=== PATIENT | male | born 1950 | race Caucasian/White ===

== ENCOUNTER 2018-07-30 11:36 | Outpatient (CLI) | payer MEDICARE, BC, SELFPAY ==
[2018-07-30 12:13] LABS: HCT 43.8 % (40.0-50.0); HGB 14.9 g/dL (13.5-17.5); Mean Corpuscular Hemoglobin 32.5 pg (27.0-33.0); Mean Corpuscular Volume 95.4 fL (80-95); Mean Platelet Volume 9.3 fL (8.0-11.0); Platelet Count 290 x1000/uL (130-400); RBC 4.59 m/cumm (4.50-6.00); RBC Distribution Width 13.9 % (11.8-14.1); White Blood Cell Count 6.91 k/cumm (4.4-10.8)
[2018-07-30 13:19] LABS: ALT 33 U/L (12-78); AST 19 U/L (15-37); Albumin 3.7 g/dL (3.4-5.0); Alkaline Phosphatase 101 U/L (46-116); Anion Gap 10.6 mmol/L (3-11); BUN 18 mg/dL (7-18); Bilirubin, Total 0.4 mg/dL (0.2-1.0); CO2 27.4 mmol/L (21.0-32.0); CREATININE 1.28 mg/dL (0.70-1.30); Chloride 105 mmol/L (98-107); Cholesterol 160 mg/dL (50-200); Estimated GFR 55.72 (mL/min/1.73m2); Glucose 112 mg/dL (70-100); HDL Cholesterol 46 mg/dL (40-60); LDL CHOLESTEROL 93 mg/dL (<100); Sodium 143 mmol/L (136-145); Triglyceride 134 mg/dL (30-150)
== END 2018-07-30 11:56 ==
PROVIDERS: PCP Nurse Practitioner; Visit Provider Nurse Practitioner
DX: E78.5 Hyperlipidemia, unspecified (principal); I10 Essential (primary) hypertension
CPT/HCPCS: 80053; 80061; 83721; 85027

== ENCOUNTER 2019-08-03 12:12 | Outpatient (CLI) | payer MEDICARE, BC, SELFPAY ==
[2019-08-03 14:35] LABS: ALT 38 U/L (16-63); AST 21 U/L (15-37); Albumin 4.1 g/dL (3.4-5.0); Alkaline Phosphatase 96 U/L (46-116); BUN 15 mg/dL (7-18); Bilirubin, Total 0.6 mg/dL (0.2-1.0); CREATININE 1.07 mg/dL (0.70-1.30); Calculated LDL 77 mg/dL (<100); Chloride 104 mmol/L (98-107); Cholesterol 136 mg/dL (<200); Glucose 100 mg/dL (74-106); HDL Cholesterol 53 mg/dL (40-60); Potassium 3.9 mmol/L (3.5-5.1); Sodium 140 mmol/L (136-145); Total Protein 7.2 g/dL (6.4-8.2); Triglyceride 32 mg/dL (<150)
== END 2019-08-03 12:32 ==
PROVIDERS: PCP Nurse Practitioner; Visit Provider Nurse Practitioner
DX: I10 Essential (primary) hypertension (principal); E78.5 Hyperlipidemia, unspecified
CPT/HCPCS: 36415; 80053; 80061

== ENCOUNTER 2020-08-23 02:21 | Outpatient (CLI) | payer MEDICARE, OTHER, SELFPAY ==
[2020-08-23 08:32] LABS: ALT 31 U/L (16-63); AST 19 U/L (15-37); Alkaline Phosphatase 87 U/L (46-116); Anion Gap 9.7 mmol/L (3-11); BUN 18 mg/dL (7-18); Bilirubin, Total 0.7 mg/dL (0.2-1.0); CO2 27.3 mmol/L (21.0-32.0); Calcium 8.6 mg/dL (8.5-10.1); Calculated LDL 106 mg/dL (<100); Chloride 108 mmol/L (98-107); Cholesterol 168 mg/dL (<200); Glucose 102 mg/dL (74-106); HDL Cholesterol 46 mg/dL (40-60); Sodium 145 mmol/L (136-145); Triglyceride 80 mg/dL (<150)
== END 2020-08-23 02:22 | disposition home or self-care (01) ==
LOC: LBO 02:21
PROVIDERS: PCP Nurse Practitioner; Visit Provider Nurse Practitioner
DX: E78.5 Hyperlipidemia, unspecified (principal); I10 Essential (primary) hypertension
CPT/HCPCS: 36415; 80053; 80061

== ENCOUNTER 2021-09-05 02:41 | Outpatient (CLI) | payer OTHER, SELFPAY ==
[2021-09-05 12:21] LABS: HCT 43.5 % (40.0-50.0); MCH 32.3 pg (27.0-33.0); MCHC 34.5 % (32.0-36.0); MCV 94 fL (80-95); MPV 9.5 fL (8.0-11.0); Platelet Count 253 10^3/uL (130-400); RBC 4.64 10^6/uL (4.36-5.78); RDW 12.8 % (11.8-14.1); RDW-SD 43.9 fL; WBC 5.67 10^3/uL (4.4-10.8)
[2021-09-05 13:30] LABS: ALT 44 U/L (16-63); AST 21 U/L (15-37); Alkaline Phosphatase 82 U/L (46-116); Anion Gap 8.7 mmol/L (3-11); BUN 17 mg/dL (7-18); Bilirubin, Total 0.7 mg/dL (0.2-1.0); CO2 28.3 mmol/L (21.0-32.0); CREATININE 1.1 mg/dL (0.70-1.30); Calcium 8.4 mg/dL (8.5-10.1); Calculated LDL 83 mg/dL (<100); Chloride 104 mmol/L (98-107); Cholesterol 148 mg/dL (<200); Glucose 107 mg/dL (74-106); HDL Cholesterol 46 mg/dL (40-60); Potassium 3.7 mmol/L (3.5-5.1); Sodium 141 mmol/L (136-145); Total Protein 7.3 g/dL (6.4-8.2); Triglyceride 97 mg/dL (<150)
== END 2021-09-05 02:42 | disposition home or self-care (01) ==
LOC: LBO 02:41
PROVIDERS: PCP Nurse Practitioner; Referring Provider Nurse Practitioner; Visit Provider Nurse Practitioner
DX: I10 Essential (primary) hypertension (principal); E78.5 Hyperlipidemia, unspecified; D12.6 Benign neoplasm of colon, unspecified
CPT/HCPCS: 36415; 80053; 80061; 85027

== ENCOUNTER → 2021-12-05 11:23 | Outpatient (BNVA) | payer OTHER, SELFPAY | PROVIDERS: PCP Nurse Practitioner; Referring Provider Nurse Practitioner; Visit Provider Surgery | DX: Z86.010 Personal history of colon polyps (principal); Z12.11 Encounter for screening for malignant neoplasm of colon ==

== ENCOUNTER 2021-12-14 10:12 | Day surgery (SDC) | payer OTHER, SELFPAY ==
--- NOTE | 2021-12-14 06:35 | W.ANESPRE ---
General Info Date of Service Date Performed: 12/14/21 Height: 5 ft 10 in Weight: 77.337 kg Body Mass Index (BMI): 24.4 Surgical Procedure: Operation Date: 12/14/21 10:50 Proposed Procedure Side Surgeon gabi Castillo, DO Meds Allergies and Home Medications Allergies Allergy/AdvReac Type Severity Reaction Status Date / Time No Known Allergies Allergy Verified 12/13/21 11:26 Home Medication Medication Instructions Recorded guukrnavvb-jtbyjbdngi-rgckywpu-hyalur 1 - 2 ea PO DAILY 06/24/12 ac 375 mg-300 mg-175 mg-2 mg cap multivitamin (Daily Vitamin tablet) 1 ea PO DAILY 06/24/12 flaxseed 1,000 mg capsule 1,000 mg PO DAILY 09/24/13 saw palmetto 450 mg capsule 450 mg PO DAILY 10/19/14 aspirin 81 mg tablet,delayed 81 mg PO DAILY #1 tab-cap 11/16/14 release (Aspir-Low) garlic 1,000 mg capsule 1,000 mg PO DAILY 08/03/18 yeast 680 mg tablet (Arroyo's 100 mg PO DAILY 08/03/18 Yeast) meclizine 25 mg tablet 25 mg PO DAILY PRN dizziness #30 08/15/20 tabs selenium 200 mcg capsule 200 mcg PO DAILY 03/05/21 atorvastatin 20 mg tablet 20 mg PO QHS #90 tabs 06/27/21 amlodipine 10 mg tablet 10 mg PO DAILY #90 tab-caps 09/10/21 enalapril maleate 20 mg tablet 20 mg PO BID #180 tabs 09/10/21 trazodone 50 mg tablet 50 mg PO QHS PRN sleep #30 tabs 09/10/21 bisacodyl 5 mg tablet,delayed 5 mg PO ONCE #4 tabs 12/05/21 release (Dulcolax (bisacodyl)) polyethylene glycol 3350 17 17 g PO ONCE #238 grams 12/05/21 gram/dose oral powder Current Visit Medications: Current Medications Generic Name Dose Route Start Last Admin Trade Name Freq PRN Reason Stop Dose Admin Ringer's Solution 1,000 mls @ 80 mls/hr 12/14/21 06:00 IV 12/14/21 23:59 INFUSION LACY IV Miscellaneous Supplies 1 each 12/14/21 06:00 Iv Access IV 12/14/21 23:59 DIRECTED LACY Sodium Chloride 0 ml 12/14/21 06:00 Normal Saline Flush 10 Ml Syr IV 12/14/21 23:59 PRN PRN Sodium Chloride 0 ml 12/14/21 06:00 Normal Saline 10 Ml Vial IJ 12/14/21 23:59 DIRECTED PRN Sterile Water 0 ml 12/14/21 06:00 Water,Injection,Sterile 10 Ml Vial IJ 12/14/21 23:59 DIRECTED PRN PFSH Active Problems Active Problems: Problem Status Onset Code Tubular adenoma of colon 12/04/16 D12.6 Hypopotassemia 05/16/11 E87.6 Hyperlipidemia 06/23/12 E78.5 Other and unspecified hyperlipidemia 06/23/12 E78.5 Essential hypertension 12/21/12 I10 Benign neoplasm of colon, unspecified 05/16/11 D12.6 Adenomatous polyp 09/24/13 D36.9 Medical History Medical History Adenomatous polyp Essential hypertension Surgical History Surgical History Colonoscopy - IV Sedation (12/04/16) Tobacco Smoking/Tobacco Use Status: Never Alcohol Alcohol Intake: current Alcohol intake frequency: holidays/special occasions only Alcohol type: beer and wine Substance Use Substance use: Never Substance use type: does not use Vital Signs and Lab Results Vital Signs Most Recent Vital Signs in EMR: Temp Pulse Resp BP Pulse Ox 36.8 C 84 18 146/85 H 97 12/14/21 10:29 12/14/21 10:29 12/14/21 10:29 12/14/21 10:29 12/14/21 10:29 Lab Results Blood Type / Crossmatch: No Data to Display Complete Blood Count: No Data to Display Complete Metabolic Panel: No Data to Display Liver Function Panel: No Data to Display Coagulation Panel: No Data to Display Cardiac Panel: No Data to Display Arterial Blood Gas: No Data to Display Venous Blood Gas: No Data to Display Pancreas Panel: No Data to Display Thyroid Panel: No Data to Display Infectious Disease: No Data to Display Blood Cultures: No Data to Display Toxicology Panel: No Data to Display Anesthesia Assessment and Plan Anesthesia History Personal History: No History of Anesthesia Complications Family History: No Family History of Anesthesia Complications Exercise Tolerance Exercise Tolerance: Metabolic Equivalents>4 Cardiac & Pulmonary Exam Cardiac Exam: Normal S1/S2 Heart Sounds Pulmonary Exam: Clear Bilateral Breath Sounds Implantable Cardiac Device Does patient have a Pacemaker or an ICD?: No Airway Exam Known Difficult Airway: No Mallampati Class: 2 Mouth Opening: Normal (> 3cm) Thyromental Distance: Greater than 3 cm Neck Range of Motion: Full ROM Neck Circumference: Normal Teeth Condition: Normal Dentition ASA Classification ASA Score: ASA 2 Emergency Case?: No NPO Status NPO Status: NPO Clears >2 hours, Solids >8 hours Anesthesia Plan Resuscitation Status: Full Code Anesthesia Technique: General Anesthesia Airway Planned: Natural Airway Monitors Used: Standard Monitors Preoperative Comments:: 71 male with hisotry of polyops for colo. Sig PMHx: HTN (amlodipine, enalapril), never smoker, occ EtOH.
[2021-12-14 10:29] VITALS: BP 146/85; PULSE 84; RESP 18; TEMP 36.8; O2SAT 97
[2021-12-14] MEDS: Lactated Ringers 1,000 ML 80 ML IV (10:50)
[2021-12-14 10:51] VITALS: BMI 24.4
--- NOTE | 2021-12-14 11:16 | W.PM.DSUDISC ---
Discharge Plan Disposition Patient Disposition: HOME Condition: Good Discharge Details Attending Provider: Johnathan Hung Primary Care Provider: Lindsay Meza Home Meds and New Rx's Prescriptions: Continued garlic 1,000 mg capsule 1,000 mg PO DAILY Arroyo's Yeast 680 mg tablet 100 mg PO DAILY meclizine 25 mg tablet 25 mg PO DAILY PRN (Reason: dizziness) Qty: 30 12RF selenium 200 mcg capsule 200 mcg PO DAILY amlodipine 10 mg tablet 10 mg PO DAILY Qty: 90 3RF enalapril maleate 20 mg tablet 20 mg PO BID Qty: 180 3RF Rx Instructions: dx: blood pressure trazodone 50 mg tablet 50 mg PO QHS PRN (Reason: sleep) Qty: 30 3RF multivitamin [Daily Vitamin] 1 EACH tablet 1 ea PO DAILY glucosam-chond tk-sridyr-tt ac 1 EACH capsule 1 - 2 ea PO DAILY Rx Instructions: 1500/1200mg per tab flaxseed 1,000 MG capsule 1,000 mg PO DAILY saw palmetto 450 MG capsule 450 mg PO DAILY aspirin [Aspir-Low] 81 MG tablet,delayed release (DR/EC) 81 mg PO DAILY Qty: 1 Rx Instructions: and takes 1-2 HS prn. atorvastatin 20 mg tablet 20 mg PO QHS Qty: 90 3RF Discontinued bisacodyl [Dulcolax (bisacodyl)] 5 mg tablet,delayed release (DR/EC) 5 mg PO ONCE Qty: 4 0RF Rx Instructions: Take according to provider's instructions for colonoscopy prep. polyethylene glycol 3350 17 gram/dose powder 17 g PO ONCE Qty: 238 0RF Rx Instructions: To be taken as directed by prescriber's office for colonoscopy prep. Discharge Instructions Additional Instructions: 1. If tolerated, consume a soft, low fiber diet for 1-2 days. 2[address] Do not drive, drink alcohol, operate machinery, make critical decisions, or do activities that require coordination or balance for 24 hours. 3. Because air was put into your colon during the procedure, expelling air from your rectum (passing gas or farting) is normal. 4. You may not have a bowel movement for 1-3 days because of the colonoscopy prep. This is normal. 5. Go directly to the emergency room if you notice any of the following: Develop chills (warm to touch), or if you have a thermometer and your temperature is above 101 Difficulty breathing or difficultly swallowing Persistent vomiting Severe abdominal pain, other than gas cramps Severe chest pain Black, tarry stools Any bleeding ? exceeding one tablespoon 6. Call your physician if the site where your intravenous was started becomes red, swollen, painful, and warm to touch. 7. Your physician has reviewed your pre-procedure medications. Please continue to take those medications as previously ordered. You will be given specific information/education regarding any changes to your medications before leaving. Activity:: Activity as Tolerated Diet:: As Tolerated
[2021-12-14 12:05] VITALS: BP 107/63; PULSE 81; RESP 18; TEMP 37; O2SAT 94
--- NOTE | 2021-12-14 12:05 | W.COLOREPORT ---
Colonoscopy Report Date of procedure: 12/14/21 Pre-op diagnosis general: Screening colonoscopy Post-op diagnosis procedure note: other (Diverticulosis) Procedure: Screening colonoscopy Surgeon: Johnathan Hung Anesthesia Type: General:No Airway Estimated blood loss (mL): 0 Pathology: none sent Complications: None Disposition: same day Prep: Miralax/Dulcolax Procedure Start Time: 11:34 Procedure End Time: 11:56 Retraction Time: 16 Findings: Sigmoid diverticulosis Procedure Description: After the induction of monitored anesthetic care, and with the patient in left lateral decubitus position, I began by performing an external anorectal exam.? Perineum and skin were normal, as was the anal verge.? There was no evidence of external hemorrhoids.? Next, I performed a digital rectal exam.? I did not appreciate any abnormal findings.? Next, I advanced a colonoscope into the rectal vault.? I performed retroflexion.? I did not see signs of pathologic internal hemorrhoids.? Using insufflation, I then advanced the colonoscope beyond the rectal folds and into the sigmoid colon before advancing towards the cecum.? There is extensive sigmoid diverticulosis. the quality of the prep was adequate.? The scope was noted to be in the cecum by identification of the ileocecal valve and appendiceal orifice.? I then began withdrawing the colonoscope using repeated irrigation as necessary for full evaluation of the colonic mucosa. ?Once the scope was withdrawn to the level of the rectum, great care was taken to examine portions of the rectal folds.? Finally, the scope was withdrawn and the patient was brought to the same-day surgery recovery unit as the anesthetic wore off. ?The findings and instructions were shared with the patient prior to discharge.
--- NOTE | 2021-12-14 12:13 | W.ANESPOSTOP ---
Postoperative Evaluation Date, Time and Location Date Performed: 12/14/21 Time Performed: 12:13 Patient Location: Day Surgery Unit Vital Signs Most Recent Imported Vital Signs: Most Recent Vital Signs Temp Pulse Resp BP Pulse Ox 37.0 C 81 18 107/63 94 12/14/21 12:05 12/14/21 12:05 12/14/21 12:05 12/14/21 12:05 12/14/21 12:05 Pain Score Most Recent Pain Score: Most Recent Pain Score Pain Level 0 12/14/21 12:05 Assessment Mental Status: Awake (Alert & Oriented to Patient Baseline) Airway and Respiratory Function: Patent airway with normal (patient baseline) respiratory exam Cardiovascular Function: Hemodynamically Stable Hydration Status: Adequately Hydrated Nausea & Vomiting: No Nausea or Vomiting Pain: Pt. Denies Any Pain Peripheral Nerve Block: Patient did not receive a nerve block
[2021-12-14 12:30] VITALS: BP 108/81; PULSE 87; RESP 18; TEMP 36.4; O2SAT 98
== END 2021-12-14 12:55 | disposition home or self-care (01) ==
PROVIDERS: PCP Nurse Practitioner; Visit Provider Surgery
PROC: 0DJD8ZZ Inspection of Lower Intestinal Tract, Via Natural or Artificial Opening Endoscopic (ICD-10-PCS; CPT 45378; principal; 2021-12-14 10:45)
DX: Z12.11 Encounter for screening for malignant neoplasm of colon (principal); K57.30 Diverticulosis of large intestine without perforation or abscess without bleeding
CPT/HCPCS: G0121

== ENCOUNTER 2022-09-19 02:12 | Outpatient (CLI) | payer OTHER, SELFPAY ==
[2022-09-19 09:51] LABS: Hemoglobin A1C 5.8 % (<5.7)
[2022-09-19 10:44] LABS: ALT 41 U/L (16-63); AST 14 U/L (15-37); Albumin 3.9 g/dL (3.4-5.0); Alkaline Phosphatase 100 U/L (46-116); Anion Gap 10.9 mmol/L (3-11); BUN 13 mg/dL (7-18); Bilirubin, Total 0.5 mg/dL (0.2-1.0); CO2 27.1 mmol/L (21.0-32.0); CREATININE 1.1 mg/dL (0.70-1.30); Calcium 8.6 mg/dL (8.5-10.1); Calculated LDL 94 mg/dL (<100); Chloride 106 mmol/L (98-107); Cholesterol 151 mg/dL (<200); Estimated GFR 70.88 (mL/min/1.73m2); Glucose 96 mg/dL (74-106); HDL Cholesterol 43 mg/dL (40-60); Potassium 3.4 mmol/L (3.5-5.1); Sodium 144 mmol/L (136-145); Total Protein 7.5 g/dL (6.4-8.2); Triglyceride 73 mg/dL (<150)
== END 2022-09-19 02:13 | disposition home or self-care (01) ==
LOC: LBO 02:12
PROVIDERS: PCP Nurse Practitioner; Referring Provider Nurse Practitioner; Visit Provider Nurse Practitioner
DX: E78.5 Hyperlipidemia, unspecified (principal); I10 Essential (primary) hypertension; E11.9 Type 2 diabetes mellitus without complications
CPT/HCPCS: 36415; 80053; 80061; 83036

== ENCOUNTER 2023-10-06 03:12 | Outpatient (CLI) | payer OTHER, SELFPAY ==
[2023-10-06 08:44] LABS: ALT 29 U/L (16-63); AST 14 U/L (15-37); Alkaline Phosphatase 88 U/L (46-116); Anion Gap 9.4 mmol/L (3-11); BUN 20 mg/dL (7-18); Bilirubin, Total 0.97 mg/dL (0.2-1.0); CO2 26.6 mmol/L (21.0-32.0); CREATININE 1.2 mg/dL (0.70-1.30); Calculated LDL 88 mg/dL (<100); Chloride 108 mmol/L (98-107); Cholesterol 156 mg/dL (<200); Estimated GFR 63.46 (mL/min/1.73m2); Glucose 100 mg/dL (74-106); HDL Cholesterol 51 mg/dL (40-60); Potassium 3.4 mmol/L (3.5-5.1); Sodium 144 mmol/L (136-145); Total Protein 7.4 g/dL (6.4-8.2); Triglyceride 86 mg/dL (<150)
[2023-10-08 21:49] LABS: Anaplasma phagocytophilum Negative (Negative); B. miyamotoi PCR Negative (Negative); Babesia divergens/MO-1 Negative (Negative); Babesia duncani Negative (Negative); Babesia microti Negative (Negative); Ehrlichia chaffeensis Negative (Negative); Ehrlichia ewingii/canis Negative (Negative); Ehrlichia muris eauclairensis Negative (Negative)
== END 2023-10-06 03:13 | disposition home or self-care (01) ==
LOC: LBO 03:12
PROVIDERS: Absent Provider Nurse Practitioner; PCP Nurse Practitioner; Referring Provider Nurse Practitioner; Visit Provider Nurse Practitioner
DX: E78.5 Hyperlipidemia, unspecified (principal); I10 Essential (primary) hypertension; M25.50 Pain in unspecified joint
CPT/HCPCS: 36415; 80053; 80061; 87798

== ENCOUNTER 2024-10-07 04:40 | Outpatient (CLI) | payer MEDICARE, SELFPAY ==
[2024-10-07 09:57] LABS: Abs Immature Grans 0.02 10^3/uL (0.0-0.06); HCT 43.8 % (40.0-50.0); HGB 14.9 g/dL (13.5-17.5); Immature Grans % 0.3 %; MCH 31.8 pg (27.0-33.0); MCHC 34.0 % (32.0-36.0); MCV 93 fL (80-95); MPV 9.1 fL (8.0-11.0); Platelet Count 235 10^3/uL (130-400); RBC 4.69 10^6/uL (4.36-5.78); RDW 13.3 % (11.8-14.1); RDW-SD 45.6 fL; WBC 6.62 10^3/uL (4.4-10.8)
[2024-10-07 10:00] LABS: Glucose Negative (Negative)
[2024-10-07 10:19] LABS: Hemoglobin A1C 5.7 % (<5.7)
[2024-10-07 10:28] LABS: ALT 41 U/L (16-63); AST 20 U/L (15-37); Albumin 4.0 g/dL (3.4-5.0); Alkaline Phosphatase 88 U/L (46-116); Anion Gap 6.9 mmol/L (3-11); BUN 16 mg/dL (7-18); Bilirubin, Total 0.6 mg/dL (0.2-1.0); CO2 29.1 mmol/L (21.0-32.0); Calcium 9.1 mg/dL (8.5-10.1); Calculated LDL 83 mg/dL (<100); Chloride 105 mmol/L (98-107); Cholesterol 151 mg/dL (<200); Estimated GFR 70.01 (mL/min/1.73m2); Glucose 101 mg/dL (74-106); HDL Cholesterol 48 mg/dL (>or=40); Potassium 3.7 mmol/L (3.5-5.1); Sodium 141 mmol/L (136-145); TSH 3.63 uIU/mL (0.36-3.74); Total Protein 7.5 g/dL (6.4-8.2); Triglyceride 104 mg/dL (<150)
[2024-10-07 19:00] LABS: PSA, Screening 7.8 ng/mL (<=6.5)
== END 2024-10-07 04:41 | disposition home or self-care (01) ==
LOC: LBO 04:40
PROVIDERS: PCP Nurse Practitioner; Referring Provider Family Medicine; Visit Provider Nurse Practitioner
DX: E78.5 Hyperlipidemia, unspecified (principal); Z13.9 Encounter for screening, unspecified; R73.03 Prediabetes; R39.11 Hesitancy of micturition; D64.9 Anemia, unspecified; R53.83 Other fatigue
CPT/HCPCS: 36415; 80053; 80061; 84153; 81003; 83036; 84443; 85025

== ENCOUNTER → 2025-01-06 08:54 | Outpatient (BNVA) | payer MEDICARE, SELFPAY | PROVIDERS: PCP Nurse Practitioner; Referring Provider Family Medicine; Visit Provider Nurse Practitioner Gerontology | DX: N40.1 Benign prostatic hyperplasia with lower urinary tract symptoms (principal); R97.20 Elevated prostate specific antigen [PSA]; I10 Essential (primary) hypertension; R39.9 Unspecified symptoms and signs involving the genitourinary system | CPT/HCPCS: 99205; 51798 ==

== ENCOUNTER 2025-01-06 09:48 | Outpatient (CLI) | payer MEDICARE, SELFPAY ==
[2025-01-06 18:15] LABS: PSA, Diagnostic 7.6 ng/mL (<=6.5)
== END 2025-01-06 09:49 | disposition home or self-care (01) ==
LOC: LBO 09:48
PROVIDERS: PCP Nurse Practitioner; Visit Provider Nurse Practitioner Gerontology
DX: R97.20 Elevated prostate specific antigen [PSA] (principal)
CPT/HCPCS: 36415; 84153

== ENCOUNTER → 2025-02-08 11:21 | Outpatient (BNVA) | payer MEDICARE, SELFPAY | PROVIDERS: PCP Nurse Practitioner; Referring Provider Nurse Practitioner; Visit Provider Urology | DX: C61 Malignant neoplasm of prostate (principal) | CPT/HCPCS: 55700; 76872 ==

== ENCOUNTER → 2025-02-14 10:50 | Outpatient (BNVA) | payer MEDICARE, SELFPAY | PROVIDERS: PCP Nurse Practitioner; Referring Provider Nurse Practitioner; Visit Provider Urology | DX: C61 Malignant neoplasm of prostate (principal) | CPT/HCPCS: 55700; 76872 ==

== ENCOUNTER 2025-02-14 11:32 | Outpatient (REF) | payer MEDICARE, SELFPAY ==
--- NOTE | 2025-02-14 11:20 | PROST_PTH ---
PATIENT: Aryan Pretty LOC: [facility] U#:[id number] AGE/SX: 74/M ROOM: RE02/14/[address]: Miko Blakely MD : [id number] BED: DIS: 02/14/2025 SPEC #: [id number] RECD: 02/14/25 12:47 STATUS: HERNANDEZ RE #: [id number] RAIMUNDO: 02/14/25 11:[address]: Miko Blakely DEPT: Surgical Specimen RECD BY: Rosibel Alegria ENTERED: 02/14/25 12:48 SP TYPE: PROST OTHR DR: Lindsay Meza APRN Tissues: 1 - PROSTATE NEEDLE BIOPSY 2 - PROSTATE NEEDLE BIOPSY 3 - PROSTATE NEEDLE BIOPSY 4 - PROSTATE NEEDLE BIOPSY 5 - PROSTATE NEEDLE BIOPSY 6 - PROSTATE NEEDLE BIOPSY 7 - PROSTATE NEEDLE BIOPSY 8 - PROSTATE NEEDLE BIOPSY 9 - PROSTATE NEEDLE BIOPSY 10 - PROSTATE NEEDLE BIOPSY 11 - PROSTATE NEEDLE BIOPSY 12 - PROSTATE NEEDLE BIOPSY Procedures: GROSS AND MICRO LEVEL 4 Comments: [id number]
== END 2025-02-14 11:33 | disposition home or self-care (01) ==
LOC: LBN 11:32
PROVIDERS: PCP Nurse Practitioner; Visit Provider Urology
DX: C61 Malignant neoplasm of prostate (principal)
CPT/HCPCS: 88305

== ENCOUNTER → 2025-03-01 14:52 | Outpatient (BNVA) | payer MEDICARE, SELFPAY | PROVIDERS: PCP Nurse Practitioner; Referring Provider Nurse Practitioner; Visit Provider Urology | DX: C61 Malignant neoplasm of prostate (principal) | CPT/HCPCS: 99215; G2212 ==